=== PATIENT | female | born 1970 | race Caucasian/White ===

== ENCOUNTER → 2017-10-02 09:11 | Outpatient (CLI) | payer OTHER ==
[~2017-10-02 09:11] MED LIST: DESYREL100 MG PO; GILTUSS TR TAB1 EACH PO; TYLENOL 325MG325 MG RC; ZITHROMAX500 MG PO; ZOLOFT50 MG PO; ZYRTEC10 MG PO
== END | disposition home or self-care (01) ==
LOC: LAB 09:11
DX: B34.9 Viral infection, unspecified (principal); J11.1 Influenza due to unidentified influenza virus with other respiratory manifestations

== ENCOUNTER 2019-12-27 13:00 | Outpatient (CLI) | payer OTHER | END 2019-12-27 15:00 | disposition home or self-care (01) | LOC: PPH VACUNA 13:00 | DX: Z23 Encounter for immunization (principal) ==

== ENCOUNTER → 2021-01-04 | Outpatient (CLI) | payer OTHER | END | disposition home or self-care (01) | LOC: PPH VACUNA 08:00 | PROVIDERS: ATTEND Emergency Medicine Pediatric Emergency Medicine | DX: Z23 Encounter for immunization (principal) ==

== ENCOUNTER 2021-02-04 09:35 | Outpatient (CLI) | payer OTHER | END 2021-02-04 09:40 | disposition home or self-care (01) | LOC: PPH VACUNA 09:35 | PROVIDERS: ATTEND Emergency Medicine Pediatric Emergency Medicine | DX: Z23 Encounter for immunization (principal) ==

== ENCOUNTER 2021-07-15 08:00 | Outpatient (CLI) | payer OTHER | END 2021-07-15 08:30 | disposition home or self-care (01) | LOC: PPH VACUNA 08:00 | PROVIDERS: ATTEND Emergency Medicine Pediatric Emergency Medicine | DX: Z23 Encounter for immunization (principal) ==

== ENCOUNTER 2021-07-17 09:59 | Emergency (ER) | payer OTHER ==
[~2021-07-17] VITALS: Ht 167.6 cm; Wt 95.7 kg
== END 2021-07-17 13:26 | disposition home or self-care (01) ==
LOC: ER 09:59
DX: I10 Essential (primary) hypertension (principal); B34.9 Viral infection, unspecified; Z20.822 Contact with and (suspected) exposure to COVID-19

== ENCOUNTER 2021-12-19 08:00 | Outpatient (CLI) | payer OTHER | END 2021-12-19 08:05 | disposition home or self-care (01) | LOC: PPH VACUNA 08:00 | PROVIDERS: ATTEND Emergency Medicine Pediatric Emergency Medicine | DX: Z23 Encounter for immunization (principal) ==

== ENCOUNTER 2022-01-06 10:50 | Outpatient (CLI) | payer OTHER | END 2022-01-06 11:00 | disposition home or self-care (01) | LOC: PPH VACUNA 10:50 | PROVIDERS: ATTEND Emergency Medicine Pediatric Emergency Medicine | DX: Z23 Encounter for immunization (principal) ==

== ENCOUNTER 2022-07-15 09:54 | Emergency (ER) | payer OTHER ==
[~2022-07-15] VITALS: Ht 170.2 cm; Wt 111.1 kg
[2022-07-15] MEDS ORDERED: BENZONATATE150 MG PO (12:34)
[2022-07-15] MEDS ORDERED: PROVENTIL HFA6.7 GM IH (12:34)
[2022-07-15] MEDS ORDERED: BENZONATATE200 M1 PO (12:36)
== END 2022-07-15 12:40 | disposition home or self-care (01) ==
LOC: ER 09:54
DX: R05.8 Other specified cough (principal); R09.3 Abnormal sputum; J02.9 Acute pharyngitis, unspecified; Z20.822 Contact with and (suspected) exposure to COVID-19

== ENCOUNTER 2022-10-04 13:29 | Outpatient (CLI) | payer OTHER ==
[~2022-10-04 13:29] MED LIST changes: +BENZONATATE150 MG PO; +BENZONATATE200 M1 PO; +PROVENTIL HFA6.7 GM IH
== END 2022-10-04 13:32 | disposition home or self-care (01) ==
LOC: LAB 13:29
PROVIDERS: ATTEND Emergency Medicine
DX: R13.13 Dysphagia, pharyngeal phase (principal); J01.80 Other acute sinusitis

== ENCOUNTER 2022-12-10 12:20 | Outpatient (CLI) | payer OTHER | END 2022-12-10 12:30 | disposition home or self-care (01) | LOC: PPH VACUNA 12:20 | PROVIDERS: ATTEND Emergency Medicine Pediatric Emergency Medicine | DX: Z23 Encounter for immunization (principal) | CPT/HCPCS: 90686; G0008 ==

== ENCOUNTER 2024-01-15 12:00 | Outpatient (CLI) | payer OTHER | END 2024-01-15 12:15 | disposition home or self-care (01) | LOC: PPH VACUNA 12:00 | PROVIDERS: ATTEND Emergency Medicine Pediatric Emergency Medicine | DX: Z23 Encounter for immunization (principal) ==

== ENCOUNTER 2024-02-02 13:49 | Outpatient (CLI) | payer OTHER | END 2024-02-02 13:56 | disposition home or self-care (01) | LOC: MAMO-SONO 13:49 | PROVIDERS: ATTEND Surgery | DX: N60.11 Diffuse cystic mastopathy of right breast (principal); N60.12 Diffuse cystic mastopathy of left breast ==

== ENCOUNTER 2025-03-16 11:35 | Outpatient (CLI) | payer OTHER | END 2025-03-16 11:41 | disposition home or self-care (01) | LOC: RAD 11:35 | DX: M25.511 Pain in right shoulder (principal); M25.512 Pain in left shoulder ==